=== PATIENT | male | born 1975 | race African-American/Black ===

== ENCOUNTER 2021-11-04 10:10 | Emergency (ER) | payer OTHER, SELFPAY ==
--- NOTE | ~2021-11-04 | XR_ITS ---
EXAMINATION: XR wrist RT min 3V DATE: 11/04/2021 10:44 INDICATION: Right wrist pain and swelling. Injury. TECHNIQUE: 4 views of right wrist were obtained. COMPARISON: None. FINDINGS: Bone alignment is normal. No fracture. 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 IMPRESSION: 1. No fracture. Reviewed, dictated and finalized at location A. IMPRESSION: 1. No fracture.
[2021-11-04 10:12] VITALS: BP 149/107; PULSE 105; RESP 16; TEMP 36.3; O2SAT 100
[2021-11-04] MEDS: IBUPROFEN 400 MG TABLET 800 MG PO (10:57)
--- NOTE | 2021-11-04 11:04 | ED.UPPEXIN ---
HPI - Extremity Injury (Upper) General Chief Complaint: Extremity Injury, Upper Stated Complaint: right hand injury Time Seen by Provider: 11/04/21 10:18 Source: patient and RN notes reviewed Mode of arrival: ambulatory Limitations: no limitations History of Present Illness HPI narrative: This is a right hand dominant who presents for evaluation of right wrist pain and swelling. PAtient states his right wrist accidentally hit corner of wall 2 days ago. He has been having right wrist pain and swelling since injury. He is able to move fingers and wrist but with pain. His pain has been constant and worse with movement. He has not tried any treatment at home such as ice, bandage, or NSAIDS. complaint: injury to: right and wrist Onset (ago): day(s) Handedness: right Severity scale (1-10): 6 Related Data Allergies Allergy/AdvReac Type Severity Reaction Status Date / Time No Known Allergies Allergy Verified 11/04/21 10:21 Review of Systems Constitutional: Constitutional: Denies chills and Denies fatigue Musculoskeletal: Musculoskeletal: Reports muscle cramps Integumentary/Breasts: Skin/Breast: Denies pruritus, Denies erythema and Denies rash PMFSH Family History Family History (Updated 08/14/16 @ 08:11 by DOCTOR UNKNOWN) Mother Hypertension Sibling Patient's sister is in good health Father Acute myocardial infarction, Onset Age: 45 Social History Social History Smoking status: Never smoker Alcohol intake: current Exam Const: General: healthy appearing and no acute distress Nutritional Appearance: well nourished Orientation/consciousness: patient oriented x3 HENMT: Head: normal to inspection Eyes: EOM: EOMs intact bilaterally Resp: Effort & Inspection: normal respiratory effort Skin: General skin exam: normal color Wounds: no wounds Neuro: General: patient oriented x3, moves all extremities and CN's II-XI intact bilaterally Cranial nerves: Yes Nystagmus not present Speech: normal speech Gait exam (Neuro): Normal gait present Extrem: Right upper extremity: wrist tenderness of the distal ulna, swelling, normal ROM, radial pulse present and ulnar pulse present Other: right wrist with swelling along distal ulna, no bruising, there is mild tenderness Psych: Mental Status: mental status grossly normal Course Course Emergency Course: I discussed with patient xray was negativen for fracture. He was given ice pack and I wrapped right wrist with carlos bandage on patient request. He understands discharge instructions right wrist contusion. Vital Signs Vital signs: Vital Signs Temperature 97.4 F L 11/04/21 10:12 Pulse Rate 105 H 11/04/21 10:12 Respiratory Rate 16 11/04/21 10:12 Blood Pressure 149/107 H 11/04/21 10:12 Pulse Oximetry 100 11/04/21 10:12 Temperature 97.4 F L 11/04/21 10:12 Pulse Rate 105 H 11/04/21 10:12 Respiratory Rate 16 11/04/21 10:12 Blood Pressure 149/107 H 11/04/21 10:12 Pulse Oximetry 100 11/04/21 10:12 MDM - Extremity Injury (Upper) Imaging Data Radiologist's impression: ITS Impressions Wrist X-Ray 11/04/21 10:45 IMPRESSION: 1. No fracture. Discharge Plan Discharge Clinical Impression: Contusion of right wrist, initial encounter Patient Disposition: Home, Self-Care Condition: Stable Instructions: Antibiotic Form, Wrist Injury (ED) Additional Instructions: Today you were evaluated for a wrist injury. Please read instructions for treatment with rest, ice, compression and elevated. Take ibuprofen as needed for your pain. Prescriptions: New ibuprofen 800 mg tablet 800 mg PO TID PRN (Reason: pain) Qty: 14 0RF Follow-up/Referrals: PHYSICIAN,BUFFER COPPER [Primary Care Provider] - Angie Curiel DO [Physician] -
== END 2021-11-04 11:35 | disposition home or self-care (01) ==
PROVIDERS: Emergency Provider General Practice
DX: S60.211A Contusion of right wrist, initial encounter (principal); W22.01XA Walked into wall, initial encounter
CPT/HCPCS: 73110; 99283; A9270

== ENCOUNTER 2021-11-19 03:00 | Emergency (ER) | payer OTHER, SELFPAY ==
[2021-11-19 03:04] VITALS: BP 156/101; PULSE 62; RESP 18; TEMP 36.4; O2SAT 99
--- NOTE | 2021-11-19 03:19 | ED.EAR ---
HPI - Ear Problem General Chief complaint: Ear Stated complaint: left ear infection Time Seen by Provider: 11/19/21 03:09 History of Present Illness HPI Narrative: 46-year-old male presents with 2 days of severe pain in his left ear, and it seems to radiate to the jaw, he seems to feel there may be clear discharge from the ear, has not tried taking anything at home for pain, denies any fevers or chills, has not had an ear infection since he was a kid. Worse with touch no hearing loss. Related Data Allergies Allergy/AdvReac Type Severity Reaction Status Date / Time No Known Allergies Allergy Verified 11/04/21 10:21 Review of Systems Review of Systems: CONST: No fever. HEENT: Ear pain PMFSH Family History Family History Mother Hypertension Sibling Patient's sister is in good health Father Acute myocardial infarction, Onset Age: 45 Social History Social History Smoking status: Never smoker Alcohol intake: current Exam Narrative: EXAMINATION OF ORGAN SYSTEMS/BODY AREAS: Constitutional: Vital signs per nursing GENERAL: Appears uncomfortable HEAD: Normal with no signs of head trauma. EYES: EOMI, conjunctiva normal ENT: Hearing grossly intact, left TM extremely erythematous, tenderness of the ear canal, no swelling of the mastoid. There is some poor dentition and pain to palpation on the left upper and lower molars, no fluctuance. LUNGS: Nonlabored breathing. HEART: [Regular rate and rhythm] EXT: Normal range of motion SKIN: [No rashes or lesions.] NEURO: [Alert and oriented x 3. No gross focal sensory or strength deficits.] PSYCH: Normal affect Course Vital Signs Vital signs: Vital Signs Temperature 97.5 F L 11/19/21 03:04 Pulse Rate 62 11/19/21 03:04 Respiratory Rate 18 11/19/21 03:04 Blood Pressure 156/101 H 11/19/21 03:04 Pulse Oximetry 99 11/19/21 03:04 Oxygen Delivery Room Air 11/19/21 03:04 Temperature 97.5 F L 11/19/21 03:04 Pulse Rate 62 11/19/21 03:04 Respiratory Rate 18 11/19/21 03:04 Blood Pressure 156/101 H 11/19/21 03:04 Pulse Oximetry 99 11/19/21 03:04 Oxygen Delivery Room Air 11/19/21 03:04 Medical Decision Making MDM Narrative Medical decision making narrative: 46-year-old male presenting with severe left-sided ear pain that radiates to left jaw, vital signs stable here, exam does show tenderness palpation of the left external ear without mastoid tenderness or swelling, and an erythematous TM, and tenderness palpation left molars, I suspect possible otitis externa and otitis media with tooth ache; doubt meningitis without any numbness or neurologic signs or neck pain, tinnitus without mastoid tenderness or swelling. He will be treated with NSAIDs here and started on antibiotics, he is given follow-up to ENT and urged to call his dentist, he is given return precautions if symptoms do not improve or if they get worse. Vital Signs Vital Signs: Vital Signs Temperature 97.5 F L 11/19/21 03:04 Pulse Rate 62 11/19/21 03:04 Respiratory Rate 18 11/19/21 03:04 Blood Pressure 156/101 H 11/19/21 03:04 Pulse Oximetry 99 11/19/21 03:04 Oxygen Delivery Room Air 11/19/21 03:04 Temperature 97.5 F L 11/19/21 03:04 Pulse Rate 62 11/19/21 03:04 Respiratory Rate 18 11/19/21 03:04 Blood Pressure 156/101 H 11/19/21 03:04 Pulse Oximetry 99 11/19/21 03:04 Oxygen Delivery Room Air 11/19/21 03:04 Discharge Plan Discharge Clinical Impression: Otitis externa, Otitis media, Toothache Patient Disposition: Home, Self-Care Condition: Stable Instructions: Antibiotic Form, Ear Infection (ED), Toothache (ED) Additional Instructions: Please use the antibiotics as prescribed, and go see your dentist and the ENT. You can always come back if you feel worse. Prescriptions: New Cipro HC 0.2-1 % drops,suspension
[2021-11-19] MEDS: NEOMYCIN/POLYMYXIN/HYDROCORT OT SUSP 10 ML BTL (*BKC) 4 DROP EACH EAR (03:44)
[2021-11-19] MEDS: KETOROLAC 30 MG/ML VIAL (*BKC) IM (03:44)
[2021-11-19] MEDS: AMOXICILLIN/CLAVULANATE K 875-125 MG TAB 1 TABLET PO (03:44)
[2021-11-19 04:14] VITALS: BP 146/89; PULSE 75; RESP 14; O2SAT 98
== END 2021-11-19 04:15 | disposition home or self-care (01) ==
PROVIDERS: Emergency Provider Emergency Medicine
DX: H60.92 Unspecified otitis externa, left ear (principal); H66.92 Otitis media, unspecified, left ear; K08.89 Other specified disorders of teeth and supporting structures
CPT/HCPCS: 96372; 99283; A9270; J1885